=== PATIENT | male | born 1950 | race Caucasian/White ===

== ENCOUNTER → 2018-01-28 | Outpatient (CLI) | payer OTHER ==
[~2018-01-28] MED LIST: ATENOLOL50 MG PO; ATORVASTATIN CA20 MG PO; ATORVASTATIN CA40 MG; Bactroban Nasal Oint TP; CIPRO500 MG PO; CYCLOBENZAPRINE10 MG PO; FLAGYL500 MG PO; FLEXERIL10 MG PO; FLOMAX0.4 MG PO; Flexeril PO; GABAPENTIN600 MG PO; GLUCOPHAGE1000 MG PO; GLUCOTROL5 MG PO; Glucotrol PO; HUMIRA40 MG/0.8 SC; HYDROCODON-ACE1 EAC7 PO; LANTUS 3 M100 UNITS1 SC; LOTREL 5/401 CAPSULE PO; NEXIUM40 MG PO; Percocet 5/325,Endoc PO; SERTRALINE HCL25 MG PO; SPIRIVA1 INHALATI IH; Tenormin PO; ZOLOFT25 MG PO; Zoloft PO
== END | disposition home or self-care (01) ==
LOC: CDC 15:20
DX: Z01.810 Encounter for preprocedural cardiovascular examination (principal); M79.642 Pain in left hand; M72.0 Palmar fascial fibromatosis [Dupuytren]
CPT/HCPCS: 93000